=== PATIENT | male | born 1975 | race Caucasian/White ===

== ENCOUNTER 2017-07-05 13:02 | Observation (INO) | payer OTHER ==
[~2017-07-05] VITALS: Ht 185.4 cm; Wt 122.5 kg
[2017-07-05 16:33] VITALS: BP 119/75
[2017-07-05] MEDS ORDERED: CLOZAPINE100 MG PO ×2 (18:27)
[2017-07-05] MEDS ORDERED: DEPAKOTE500 MG PO ×2 (18:28)
[2017-07-05] MEDS ORDERED: COLESTID1 GM PO (18:28)
[2017-07-05] MEDS ORDERED: VITAMIN D32000 UNI1 PO (18:29)
[2017-07-05] MEDS ORDERED: BENZTROPINE MESY1 MG PO (18:30)
[2017-07-05] MEDS ORDERED: ATIVAN2 MG/1 ML IM (18:31)
[2017-07-05] MEDS ORDERED: ATIVAN1 MG PO (18:31)
[2017-07-05] MEDS ORDERED: VALACYCLOVIR1000 MG PO (18:32)
[2017-07-05 20:01] VITALS: BP 128/85
[2017-07-05 23:12] VITALS: BP 111/65
[2017-07-06 04:00] VITALS: BP 118/78
[2017-07-06 06:43] LABS: CHLORIDE 105 MEQ/L (99-109); CREATINE KINASE 825 IU/L (1-294); CREATININE 0.9 MG/DL (0.6-1.3); GFR ESTIMATE (CALCULATED) > 59 mL/min/ (58.99-99999); GLUCOSE 86 mg/dL (70-99); POTASSIUM 3.6 MEQ/L (3.7-5.4); SODIUM 140 MEQ/L (136-147); UREA NITROGEN (BUN) 21 mg/dL (9-23)
[2017-07-06 09:20] VITALS: BP 144/81
== END 2017-07-06 21:10 ==
LOC: EME 13:02 → EDOF 13:48 → ENRESERV 13:56 → EDOF 14:31 → ENRESERV 15:38 → 5WEST 16:16
PROVIDERS: Internal Medicine
DX: M62.82 Rhabdomyolysis (principal); F23 Brief psychotic disorder; F25.9 Schizoaffective disorder, unspecified; F42.9 Obsessive-compulsive disorder, unspecified; Z91.14 Patient's other noncompliance with medication regimen
CPT/HCPCS: 80048; 82550; G0378; J1630; J2060; J2405; J7030